=== PATIENT | male | born 1960 | race Caucasian/White ===

== ENCOUNTER 2021-03-19 15:04 | Outpatient (CLI) | payer OTHER ==
[~2021-03-19 15:04] MED LIST: ASPI81TA52 PO; FEXO180T94 PO; FLUT1BLS4 INH; OMEP40CA21 PO
== END 2021-03-19 23:59 | disposition home or self-care (01) ==
LOC: RAD 15:04
PROVIDERS: ATTEND Physician Assistant
DX: Z01.818 Encounter for other preprocedural examination (principal); G89.4 Chronic pain syndrome; M48.07 Spinal stenosis, lumbosacral region
CPT/HCPCS: 72148